=== PATIENT | male | born 1995 | race Caucasian/White ===

== ENCOUNTER 2016-10-16 09:48 | Emergency (ER) | payer OTHER ==
[~2016-10-16] VITALS: Ht 177.8 cm; Wt 72.7 kg
[~2016-10-16 09:48] MED LIST: PROZ10 PO; RISP1 PO
[2016-10-16] MEDS ORDERED: IBUPROFEN 600 MG TABLET PO ONE (11:15)
[2016-10-16 12:36] VITALS: BP 111/61
== END 2016-10-16 12:55 | disposition home or self-care (01) ==
LOC: EMS 09:50
DX: S93.602A Unspecified sprain of left foot, initial encounter (principal); F20.9 Schizophrenia, unspecified; F32.9 Major depressive disorder, single episode, unspecified; F41.9 Anxiety disorder, unspecified; W22.8XXA Striking against or struck by other objects, initial encounter; Y93.01 Activity, walking, marching and hiking; Y92.89 Other specified places as the place of occurrence of the external cause; Y99.9 Unspecified external cause status
CPT/HCPCS: 29515; 99284